=== PATIENT | female | born 1985 | race Caucasian/White ===

== ENCOUNTER 2016-10-11 12:58 | Emergency (ER) | payer OTHER ==
[2016-10-11 13:12] VITALS: BP 128/87; PULSE 80; RESP 18; TEMP 98.3; O2SAT 98
[2016-10-11 13:33] LABS: GLUCOSE,URINE NEG (NEG); KETONE, URINE NEG (NEG); NITRITE,URINE NEG (NEG); PH, URINE 6.5 (5.0-8.5)
[2016-10-11 13:37] LABS: BLOOD, URINE MOD (NEG)
[2016-10-11 13:38] LABS: METHOD OF COLLECTION CLEAN CATCH
[2016-10-11 13:39] LABS: BACTERIA, URINE FEW /hpf; COMMENT (UR) CULTURE INDICATED; CULTURE IF INDICATED CULTURE INDICATED; SQUAMOUS EPITHELIAL CELL URINE 0-5 /hpf (0-5); URINE COLOR STRAW (YELLW/STRAW)
--- NOTE | 2016-10-11 13:56 | PD ---
HPI Chief Complaint: Complaint Time Seen by Provider: 13:54 Travel History International Travel<30 days: No Contact w/Intl Traveler<30days: No Traveled to known affect area: No History of Present Illness HPI 30-year-old female here for evaluation of possible UTI. For the last 2 days the patient has had dysuria and increased urinary frequency. Today she started to experience some mild lower back pain. Symptoms are very similar to previous UTIs. No fevers or chills. No nausea or vomiting. Patient is here on vacation and has no local primary care physician. PFSH Past Medical History LMP: 1 WEEK Social History Tobacco Use: No Allergies-Medications (Allergen,Severity, Reaction): Coded Allergies: No Known Allergies (Unverified , 10/11/16) Reported Meds & Prescriptions Reported Meds & Active Scripts Active Pyridium (Phenazopyridine HCl) 100 Mg Tab 100 Mg PO Q8H PRN 3 Days Bactrim DS (Sulfamethoxazole-Trimethoprim) 800-160 Mg Tab 1 Tab PO BID 5 Days Reported Microgestin 1.5/30 (Norethindrone-Ethinyl Estradiol) 1.5-30 Mg-Mcg Tab 1 Tab PO DAILY Review of Systems Except as stated in HPI: all other systems reviewed are Neg Physical Exam Narrative GENERAL: Well-developed, well-nourished, no apparent distress. SKIN: Focused skin assessment warm/dry. No rash. RESPIRATORY: No accessory muscle use. Clear to auscultation. Breath sounds equal bilaterally. GASTROINTESTINAL: Abdomen soft, non-tender, nondistended. MUSCULOSKELETAL: No obvious deformities. No clubbing. No cyanosis. No edema. No CVA tenderness. NEUROLOGICAL: Awake and alert. No obvious cranial nerve deficits. Motor grossly within normal limits. Normal speech. PSYCHIATRIC: Appropriate mood and affect; insight and judgment normal. Data Data Last Documented VS Vital Signs Date Time Temp Pulse Resp B/P Pulse Ox O2 Delivery O2 Flow Rate FiO2 10/11/16 14:22 68 18 118/70 100 Room Air 10/11/16 13:12 98.3 Orders Urinalysis - C+S If Indicated (10/11/16 13:16) Urine Culture (10/11/16 13:25) Ed Urine Pregnancytest Poc (10/11/16 13:41) Sulfamet-Trimeth Ds 800-160 Mg (Bactrim (10/11/16 14:15) Labs Laboratory Tests Test 10/11/16 13:25 Urine Collection Type CLEAN CATCH Urine Color STRAW Urine Turbidity CLEAR Urine pH 6.5 Urine Specific [place] 1.002 Urine Protein NEG mg/dL Urine Glucose (UA) NEG mg/dL Urine Ketones NEG mg/dL Urine Occult Blood MOD Urine Nitrite NEG Urine Bilirubin NEG Urine Leukocyte Esterase MOD Urine WBC 9-14 /hpf Urine WBC Clumps FEW Urine Squamous Epithelial 0-5 /hpf Cells Urine Amorphous Sediment FEW Urine Bacteria FEW /hpf Microscopic Urinalysis Comment CULTURE INDICATED Urine Collection Time 1325 MDM Medical Decision Making Medical Screen Exam Complete: Yes Emergency Medical Condition: Yes Differential Diagnosis UTI, pyelonephritis, cystitis Narrative Course Vital signs show heart rate 80, blood pressure 128/87, pulse ox 98% on room air , oral temp of 98.3F. UA: Moderate occult blood, moderate leukocyte esterase, 9-14 wbc's, few wbc clumps, few bacteria, culture indicated. Urine test is negative. Patient signs and symptoms are consistent with a UTI. Her abdominal exam shows no tenderness, no peritoneal signs. Plan is to start her on Bactrim and have her follow-up with her primary care physician when she returns to [place]. Patient informed on when to return to the emergency department. She verbalizes understanding and agreement with plan. Diagnosis Primary Impression: UTI (urinary tract infection) Qualified Code: N39.0 - Urinary tract infection with hematuria, site unspecified Referrals: Primary Care Physician 1 week Additional Instructions: Follow-up with your primary care physician this week. Take antibiotic as prescribed. Return to the emergency department for worsening symptoms or any other concerns. Scripts Phenazopyridine (Pyridium)100 Mg [id number] Mg PO Q8H PRN (DYSURIA) 3 Days Ref 0 Prov:Sunday Espinoza MD 10/11/16 Sulfamethoxazole-Trimethoprim (Bactrim DS)800-160 Mg Tab1 Tab PO BID 5 Days Ref 0 Prov:Sunday Espinoza MD 10/11/16 Disposition: 01 DISCHARGE HOME Condition: Stable Sunday Espinoza MD Oct 11, 2016 13:56
[2016-10-11] MEDS ORDERED: BACT800T5 PO (14:04)
[2016-10-11] MEDS ORDERED: PHEN0.4T PO (14:04)
[2016-10-11] MEDS ORDERED: NORE-44 PO (14:09)
[2016-10-11] MEDS ORDERED: SULFAMETHOXAZOLE-TRIMETHOPRIM DS 800-160 MG TAB PO ONE (14:15)
[2016-10-11 14:22] VITALS: BP 118/70; PULSE 68; RESP 18; O2SAT 100
== END 2016-10-11 15:03 | disposition home or self-care (01) ==
LOC: PHED 12:58
DX: N39.0 Urinary tract infection, site not specified (principal); R31.9 Hematuria, unspecified
CPT/HCPCS: 81001; 84703; 87086; 99284